=== PATIENT | female | born 1980 | race Two or more races ===

== ENCOUNTER 2020-05-27 13:21 | Outpatient (CLI) | payer OTHER, MEDICAID, SELFPAY ==
--- NOTE | 2020-05-27 11:00 | NEURO_ITS ---
PATIENT NUMBER:: [id number] IMPRESSION: # Complains of pain and numbness # Normal nerve conduction studies including F-waves. # Normal needle exam. # Normal study Nerve Conduction Studies Anti Sensory Summary Table Stim Site NR Peak (ms) P-T Amp (?V) Site1 Site2 Delta-P (ms) Dist (cm) [place] (m/s) Left Median Anti Sensory (2-3nd Digit) Wrist 2.9 256.2 Wrist 2-3nd Digit 2.9 14.0 48 Wrist 2.9 93.7 Wrist 2-3nd Digit 2.9 14.0 48 Right Median Anti Sensory (2-3nd Digit) Wrist 3.1 120.0 Wrist 2-3nd Digit 3.1 14.0 45 Wrist 3.0 113.6 Wrist 2-3nd Digit 3.1 14.0 45 Left Radial Anti Sensory (Base 1st Digit) Wrist 2.3 26.5 Wrist Base 1st Digit 2.3 0.0 Right Radial Anti Sensory (Base 1st Digit) Wrist 2.4 31.2 Wrist Base 1st Digit 2.4 0.0 Left Ulnar Anti Sensory (5th Digit) Wrist 2.6 215.6 Wrist 5th Digit 2.6 14.0 54 Right Ulnar Anti Sensory (5th Digit) Wrist 2.5 65.0 Wrist 5th Digit 2.5 14.0 56 Motor Summary Table Stim Site NR Onset (ms) O-P Amp (mV) Site1 Site2 Delta-0 (ms) Dist (cm) [place] (m/s) Right Median Motor (Abd Poll Brev) Wrist 3.9 3.0 Elbow Wrist 4.9 28.0 57 Elbow 8.8 2.6 Left Ulnar Motor (Abd Dig Minimi) Wrist 2.0 5.2 A Elbow Wrist 6.0 30.0 50 A Elbow 8.0 3.3 Right Ulnar Motor (Abd Dig Minimi) Wrist 2.5 6.0 A Elbow Wrist 5.5 29.0 53 A Elbow 8.0 4.5 F Wave Studies NR F-Lat (ms) L-R F-Lat (ms) Left Median (Mrkrs) (Abd Poll Brev) 27.11 2.50 Right Median (Mrkrs) (Abd Poll Brev) 29.61 2.50 Left Ulnar (Mrkrs) (Abd Dig Min) MTDD
== END 2020-05-27 13:22 | disposition home or self-care (01) ==
LOC: ANHNEURO 13:28
PROVIDERS: PCP Family Medicine; Visit Provider Nurse Practitioner Adult Health
DX: M54.12 Radiculopathy, cervical region (principal)
CPT/HCPCS: 95886; 95911